=== PATIENT | male | born 1980 | race African-American/Black ===

== ENCOUNTER 2017-05-28 19:44 | Emergency (ER) | payer SELFPAY, OTHER ==
[2017-05-28] MEDS: KETOROLAC 60 MG INJ IM (23:17)
== END 2017-05-29 01:25 | disposition home or self-care (01) ==
LOC: FTE 19:44
DX: S06.0X1A Concussion with loss of consciousness of 30 minutes or less, initial encounter (principal); I10 Essential (primary) hypertension; F17.210 Nicotine dependence, cigarettes, uncomplicated; S90.121A Contusion of right lesser toe(s) without damage to nail, initial encounter; S90.111A Contusion of right great toe without damage to nail, initial encounter; V03.10XA Pedestrian on foot injured in collision with car, pick-up truck or van in traffic accident, initial encounter
CPT/HCPCS: 70450; 73630; 96372; 99285-25